=== PATIENT | female | born 1945 | race Caucasian/White ===

== ENCOUNTER → 2016-12-12 | Outpatient (CLI) | payer MEDICARE, BC ==
[~2016-12-12] MED LIST: ALDACTONE25 MG PO; ALENDRONATE SOD70 MG PO; AMARYL4 MG PO; ANTIVERT25 MG PO; B-100 COMPLEX1 EACH PO; CELEXA20 MG PO; COUMADIN ** IA5 MG PO; GLUCOPHAGE1000 MG PO; LANTUS (IN100 UNIT/M SUB-Q; LOPRESSOR25 MG PO; LYRICA 150MG C150 MG PO; MAXALT10 MG PO; NORCO 5-325 TA1 EACH PO; PRAVACHOL40 MG PO; ULTRAM50 MG PO; VITAMIN E400 UNI4 PO
== END | disposition disaster alternative care site (69) ==
LOC: GBCOE 08:59
DX: Z12.31 Encounter for screening mammogram for malignant neoplasm of breast (principal)
CPT/HCPCS: G0202